=== PATIENT | female | born 1950 | race Caucasian/White ===

== ENCOUNTER 2021-12-06 07:56 | Observation (INO) | payer OTHER ==
[~2021-12-06] VITALS: Ht 167.6 cm; Wt 150.1 kg
[2021-12-06] VITALS (9 sets, daily range): BP systolic 105–141; BP diastolic 49–107
[2021-12-06] MEDS ORDERED: VENLAFAXINE HCL75 MG PO (08:25)
[2021-12-06] MEDS ORDERED: HYDROCHLOROTHIA25 MG PO (08:25)
[2021-12-06] MEDS ORDERED: SIMVASTATIN80 MG PO (08:25)
[2021-12-06] MEDS ORDERED: DOCUSATE SODIU100 MG PO (08:25)
[2021-12-06] MEDS ORDERED: ATENOLOL50 MG PO (08:25)
[2021-12-06] MEDS ORDERED: MELOXICAM7.5 MG PO (08:25)
[2021-12-06] MEDS ORDERED: VITAMIN B-121000 MCG PO (08:25)
[2021-12-06] MEDS ORDERED: OMEPRAZOLE40 MG PO (08:25)
[2021-12-06] MEDS ORDERED: VITAMIN C1000 MG PO (08:25)
[2021-12-06] MEDS ORDERED: BUPROPION XL150 MG PO (08:25)
[2021-12-06] MEDS ORDERED: NEURONTIN300 MG PO (08:25)
[2021-12-06] MEDS ORDERED: BUSPIRONE HCL5 MG PO (08:25)
[2021-12-06] MEDS ORDERED: OS-CAL 500+D T1 EACH PO (08:26)
[2021-12-06] MEDS ORDERED: Vancomycin IV 1 GM in SODIUM CHLORIDE 0.9% 250ML 250 ML IV ONE (08:45)
[2021-12-06] MEDS ORDERED: CEFEPIME 2 GM in SODIUM CHLORIDE 0.9% 100 ML IV ONE (08:45)
[2021-12-06 08:57] LABS: BASOPHILS # (AUTO) 0.1 (0.0-0.1); BASOPHILS % 0.6 % (0.0-1.0); EOSINOPHILS # (AUTO) 0.5 (0.0-0.4); EOSINOPHILS % 4.1 % (0.0-6.0); HEMATOCRIT 39.2 % (34.2-44.1); HEMOGLOBIN 12.4 g/dL (12.0-16.0); LYMPHOCYTES # (AUTO) 4.2 (1.0-3.2); LYMPHOCYTES % 35.1 % (18.0-39.1); MEAN CORPUSCULAR HEMOGLOBIN 30.8 pg (28-32); MEAN CORPUSCULAR HGB CONC 31.6 g/dL (31-35); MEAN CORPUSCULAR VOLUME 97.5 fL (81-99); MONOCYTES # (AUTO) 0.8 (0.2-0.8); MONOCYTES % 6.4 % (4.4-11.3); NEUTROPHILS # (AUTO) 6.4 (2.1-6.9); NEUTROPHILS % 53.4 % (38.7-80.0); PLATELET COUNT 221 x10e3/uL (140-360); RED BLOOD COUNT 4.02 x10e6/uL (3.6-5.1); RED CELL DISTRIBUTION WIDTH 13.7 % (11.7-14.4)
[2021-12-06 09:14] LABS: INR 0.88; PROTHROMBIN TIME 12.8 seconds (11.9-14.5)
[2021-12-06 09:15] LABS: PARTIAL THROMBOPLASTIN TIME 26.9 seconds (23.8-35.5)
[2021-12-06 09:22] LABS: ALANINE AMINOTRANSFERASE < 6 IU/L (0-55); ALBUMIN 3.3 g/dL (3.5-5.0); ALBUMIN/GLOBULIN RATIO 0.9 (0.8-2.0); ALKALINE PHOSPHATASE 56 IU/L (40-150); ANION GAP 13.6 mmol/L (8-16); BLOOD UREA NITROGEN 22 mg/dL (7-26); BUN/CREATININE RATIO 18 (6-25); CARBON DIOXIDE 32 mmol/L (22-29); CHLORIDE 101 mmol/L (98-107); CREATINE KINASE 63 IU/L (29-168); CREATININE, SERUM 1.23 mg/dL (0.57-1.11); GLUCOSE 120 mg/dL (74-118); SODIUM 144 mmol/L (136-145)
[2021-12-06 09:23] LABS: POTASSIUM 2.6 mmol/L (3.5-5.1)
[2021-12-06] MEDS ORDERED: POTASSIUM CHLORIDE 20 MEQ TAB CR PO STA (09:25)
[2021-12-06 09:31] LABS: MAGNESIUM 1.8 MG/DL (1.3-2.1)
[2021-12-06] MEDS: ONDANSETRON HCL INJ 2MG/ML 2ML 2 MG/ML VIAL IV PRN ×3 (09:31→18:03)
[2021-12-06] MEDS: Morphine 4mg INJECTION 4 MG/ML INJ IV PRN ×3 (09:31→18:03)
[2021-12-06] MEDS ORDERED: ATENOLOL25 MG PO (14:25)
[2021-12-06] MEDS ORDERED: VENLAFAXINE HC150 MG PO (14:33)
[2021-12-06] MEDS ORDERED: BUPROPION HCL100 MG PO (14:35)
[2021-12-06] MEDS ORDERED: OMEPRAZOLE20 M2 PO (14:38)
[2021-12-06] MEDS: PANTOPRAZOLE SOD 40 MG TABEC PO SCH (18:03)
[2021-12-06 18:32] LABS: CREATINE KINASE MB 1.1 ng/mL (0-5.0)
[2021-12-06] MEDS ORDERED: ACETAMINOPHEN 325 MG TAB PO PRN (19:45)
[2021-12-06] MEDS ORDERED: SODIUM CHLORIDE 0.45% 1,000 ML IV ONE (19:45)
[2021-12-06 19:56] LABS: CHOL/HDL RATIO 2.6 (3.0-3.6)
[2021-12-06] MEDS: NYSTATIN 15 GM POWDER UD BTL TOP SCH (20:48)
[2021-12-06] MEDS: HEPARIN SOD (PORCINE) 5,000 UNIT/ML VIAL SC SCH (20:51)
[2021-12-07] VITALS: BP 157/70
[2021-12-07 01:09] LABS: CREATINE KINASE MB 0.8 ng/mL (0-5.0)
[2021-12-07 04:00] VITALS: BP 123/58
[2021-12-07 06:23] LABS: BASOPHILS # (AUTO) 0.1 (0.0-0.1); BASOPHILS % 0.6 % (0.0-1.0); EOSINOPHILS # (AUTO) 0.4 (0.0-0.4); EOSINOPHILS % 4.4 % (0.0-6.0); HEMATOCRIT 37.3 % (34.2-44.1); HEMOGLOBIN 11.7 g/dL (12.0-16.0); LYMPHOCYTES # (AUTO) 2.7 (1.0-3.2); LYMPHOCYTES % 29.8 % (18.0-39.1); MEAN CORPUSCULAR HEMOGLOBIN 30.7 pg (28-32); MEAN CORPUSCULAR HGB CONC 31.4 g/dL (31-35); MEAN CORPUSCULAR VOLUME 97.9 fL (81-99); MONOCYTES # (AUTO) 0.7 (0.2-0.8); MONOCYTES % 7.8 % (4.4-11.3); NEUTROPHILS # (AUTO) 5.2 (2.1-6.9); NEUTROPHILS % 57.1 % (38.7-80.0); PLATELET COUNT 202 x10e3/uL (140-360); RED BLOOD COUNT 3.81 x10e6/uL (3.6-5.1); RED CELL DISTRIBUTION WIDTH 13.9 % (11.7-14.4)
[2021-12-07 06:50] LABS: ALBUMIN 2.9 g/dL (3.5-5.0); ALBUMIN/GLOBULIN RATIO 0.8 (0.8-2.0); ANION GAP 14.3 mmol/L (8-16); CREATININE, SERUM 1.05 mg/dL (0.57-1.11); POTASSIUM 3.3 mmol/L (3.5-5.1)
[2021-12-07 08:00] VITALS: BP 151/66
[2021-12-07] MEDS: Morphine 4mg INJECTION 4 MG/ML INJ IV PRN (08:18)
[2021-12-07] MEDS: PANTOPRAZOLE SOD 40 MG TABEC PO SCH (08:18)
[2021-12-07] MEDS: ONDANSETRON HCL INJ 2MG/ML 2ML 2 MG/ML VIAL IV PRN (08:19)
[2021-12-07] MEDS: HEPARIN SOD (PORCINE) 5,000 UNIT/ML VIAL SC SCH (08:28)
[2021-12-07] MEDS: NYSTATIN 15 GM POWDER UD BTL TOP SCH (08:30)
[2021-12-07] MEDS ORDERED: NON-FORMULARY MEDICATION (Omeprazole 40 MG) PO SCH (09:00)
[2021-12-07 11:13] VITALS: BP 151/66
[2021-12-07 11:14] VITALS: BP 151/66
[2021-12-07] MEDS ORDERED: POTASSIUM CHLORIDE 20 MEQ TAB CR PO ONE (11:15)
[2021-12-08] MEDS ORDERED: BALSAM PERU/CASTOR OIL 60 GM OINT...G. TP SCH (09:00)
== END 2021-12-07 14:46 | disposition home or self-care (01) ==
LOC: ER 08:22 → ERHOLD 09:04 → INTOOBSV 09:04 → MED/SURG2 17:20
PROVIDERS: ADMIT Internal Medicine; ATTEND Internal Medicine
DX: L03.115 Cellulitis of right lower limb (principal); N17.9 Acute kidney failure, unspecified; E87.6 Hypokalemia; E66.01 Morbid (severe) obesity due to excess calories; Z68.43 Body mass index [BMI] 50.0-59.9, adult; D64.9 Anemia, unspecified; S80.811A Abrasion, right lower leg, initial encounter; F41.9 Anxiety disorder, unspecified; E78.5 Hyperlipidemia, unspecified; I10 Essential (primary) hypertension; M17.10 Unilateral primary osteoarthritis, unspecified knee; Z90.49 Acquired absence of other specified parts of digestive tract; Z90.710 Acquired absence of both cervix and uterus; Z88.5 Allergy status to narcotic agent; Z88.0 Allergy status to penicillin; Z20.822 Contact with and (suspected) exposure to COVID-19; R46.0 Very low level of personal hygiene
CPT/HCPCS: 0223U; 36415 ×2; 71045; 73502; 73590; 73610; 80053 ×2; 80061; 82550 ×2; 82553 ×2; 83036; 83735; 83880; 84484 ×2; 85025 ×2; 85610; 85730; 87040; 93971; 94799 ×2; 99251; 99284; G0378 ×2; J0692 ×3; J1644 ×2; J2270 ×2; J2405 ×2; J3370; J7050 ×2; S0164 ×2